=== PATIENT | male | born 1930 | race Caucasian/White ===

== ENCOUNTER 2018-07-27 20:01 | Emergency (ER) | payer OTHER ==
[~2018-07-27] VITALS: Ht 177.8 cm; Wt 76.2 kg
[~2018-07-27 20:01] MED LIST: ALLOPURINOL 10100 M2 PO; ASPIRIN81 M2 PO; HYDROCHLOROTH12.5 MG PO; MELOXICAM7.5 MG PO; NABUMETONE 500500 M1 PO; PRAVASTATIN SOD20 MG PO; PREDNISONE 1 MG1 M1; TRAMADOL 50 MG50 MG PO
[2018-07-27] MEDS ORDERED: NORCO 5-325 TA1 EACH PO (21:20)
[2018-07-27 21:33] VITALS: BP 157/85
== END 2018-07-27 21:34 | disposition home or self-care (01) ==
LOC: ER 20:01
DX: S20.312A Abrasion of left front wall of thorax, initial encounter (principal); S00.81XA Abrasion of other part of head, initial encounter; Z87.442 Personal history of urinary calculi; W01.0XXA Fall on same level from slipping, tripping and stumbling without subsequent striking against object, initial encounter; Y93.89 Activity, other specified; Y92.89 Other specified places as the place of occurrence of the external cause; Y99.8 Other external cause status